=== PATIENT | male | born 1995 | race Caucasian/White ===

== ENCOUNTER 2017-01-01 17:27 | Emergency (ER) | payer OTHER ==
[~2017-01-01] VITALS: Ht 175.3 cm; Wt 76.4 kg
[2017-01-01 17:30] VITALS: BP 162/91; PULSE 105; RESP 15; TEMP 98.7; O2SAT 100
[2017-01-01] MEDS ORDERED: SODIUM CHLOR 0.9% 1000 ML INJ 1,000 ML IV ONE (17:45)
[2017-01-01] MEDS ORDERED: LIDOCAINE 2% JELLY 30 ML TUBE TOPICAL ONE (17:45)
[2017-01-01] MEDS ORDERED: PROPOFOL 200 MG/20 ML AMP IV ONE (17:45)
[2017-01-01] MEDS ORDERED: NORC5TAB PO (18:02)
[2017-01-01] MEDS ORDERED: IBUP-232 PO (18:02)
--- NOTE | 2017-01-01 18:02 | PD ---
HPI Chief Complaint: Complaint Time Seen by Provider: 17:40 Travel History International Travel<30 days: No Contact w/Intl Traveler<30days: No Traveled to known affect area: No History of Present Illness HPI The patient is a 21-year-old male who presents to the emergency department for penile swelling and pain. The patient states that he had sexual intercourse last night and has been unable to slide the foreskin over the glans since last night. The patient has a history of tightness over the foreskin, but has never had an episode where he was unable to completely retract the skin. The patient states there is swelling, some pain, but he is able to urinate with difficulty. He denies any fever, chills, or sweats. The patient denies any nausea, vomiting, or abdominal pain. PFSH Past Medical History Autoimmune Disease: No Cardiovascular Problems: No Diminished Hearing: No Genitourinary: Yes Musculoskeletal: No Neurologic: No Psychiatric: No Respiratory: No Immunizations Current: Yes Past Surgical History Oral Surgery: Yes (wisdom teeth extraction) Social History Alcohol Use: No Tobacco Use: No Substance Use: No Allergies-Medications (Allergen,Severity, Reaction): Coded Allergies: lactose (Unverified Adverse Reaction, Intermediate, 01/01/17) LACTOSE INTOLERANT Reported Meds & Prescriptions Reported Meds & Active Scripts Active Ibuprofen 600 Mg Tab 600 Mg PO Q6H PRN [place] (Hydrocodone-Acetaminophen) 5-325 mg Tab 1 Tab PO Q6H PRN Review of Systems Except as stated in HPI: all other systems reviewed are Neg Cardiovascular: No: Chest Pain or Discomfort Respiratory: No: Shortness of Breath Gastrointestinal: No: Nausea, Vomiting, Abdominal Pain Genitourinary: Positive: Other (as noted in history of present illness) Physical Exam Narrative GENERAL: Awake, alert, pleasant 21-year-old male who appears his stated age and is in no acute respiratory distress. SKIN: Focused skin assessment warm/dry. HEAD: Atraumatic. Normocephalic. NECK: Trachea midline. No JVD. CARDIOVASCULAR: Regular rate and rhythm. No murmur appreciated. RESPIRATORY: No accessory muscle use. Clear to auscultation. Breath sounds equal bilaterally. GASTROINTESTINAL: Abdomen soft, non-tender, nondistended. Genitourinary: Patient has paraphimosis with foreskin retracted, unable to place it over the glans. There is swelling of the glands, no visible bleeding from the urethral meatus. MUSCULOSKELETAL: No obvious deformities. No clubbing. No cyanosis. No edema. NEUROLOGICAL: Awake and alert. No obvious cranial nerve deficits. Motor grossly within normal limits. Normal speech. PSYCHIATRIC: Appropriate mood and affect; insight and judgment normal. Data Data Last Documented VS Vital Signs Date Time Temp Pulse Resp B/P (MAP) Pulse Ox O2 Delivery O2 Flow Rate FiO2 01/01/17 17:30 98.7 105 15 162/91 (114) 100 Orders Orders Lidocaine 2% Jelly (Xylocaine 2% Jelly) (01/01/17 17:45) Propofol 200 Mg/20 Ml Inj (Diprivan 200 (01/01/17 17:45) Sodium Chlor 0.9% 1000 Ml Inj (Ns 1000 M (01/01/17 17:45) MDM Medical Decision Making Medical Screen Exam Complete: Yes Emergency Medical Condition: Yes Medical Record Reviewed: Yes Differential Diagnosis Differential diagnosis includes paraphimosis, phimosis, ischemia, necrotic tissue, obstructive uropathy, UTI. Narrative Course The patient had ice applied to the affected area with some topical lidocaine jelly. After 15 minutes the area was reduced with gentle retraction of the foreskin over the glans penis. The patient then had ice applied over the affected area. A call was placed to the on-call urologist, Dr. Cuba, as patient will need outpatient follow-up. I discussed the patient with the urologist who agrees the patient can follow-up in the next 1-2 weeks. Procedures Procedure Narrative Topical lidocaine jelly was applied to the penis with ice. After 10-15 minutes the foreskin was reduced over the glans with gentle traction. The patient then had ice applied over the affected area. The patient tolerated the procedure without difficulty and there was no complications. Diagnosis Primary Impression: Paraphimosis Referrals: Hiram Cuba MD 2 weeks Call for an appointment in the next 1-2 weeks Patient Instructions: General Instructions Additional Instructions: Apply ice to the affected area. Follow-up with urology. Pain medications as directed. Med/Other Pt SpecificInfo: Prescription(s) given Scripts Ibuprofen (Ibuprofen) 600 Mg Tab 600 MG PO Q6H Y for Pain/Inflammation, #20 TAB 0 Refills Prov: Kasmhir Harvey MD 01/01/17 Hydrocodone-Acetaminophen ([place]) 5-325 mg Tab 1 TAB PO Q6H Y for PAIN, #12 TAB 0 Refills Prov: Kashmir Harvey MD 01/01/17 Disposition: 01 DISCHARGE HOME Condition: Stable Kashmir Harvey MD Jan 01, 2017 18:02
== END 2017-01-01 18:32 | disposition home or self-care (01) ==
LOC: PHED 17:27
DX: N47.2 Paraphimosis (principal)
CPT/HCPCS: 54450